=== PATIENT | female | born 1990 | race Caucasian/White ===

== ENCOUNTER 2019-05-30 11:29 | Emergency (ER) | payer MEDICAID ==
[2019-05-30 11:35] VITALS: BP 131/77
[2019-05-30] MEDS ORDERED: CEPHALEXIN 500 MG CAPSULE PO ONE (12:07)
--- NOTE | 2019-05-30 12:11 | ER Document Report ---
ED Skin Rash/Insect Bite/Abscs - General Chief Complaint: Skin Problem Stated Complaint: SKIN PROBLEM Time Seen by Provider: 05/30/19 12:01 Mode of Arrival: Ambulatory Information source: Patient Notes: 28-year-old female presents to ED for bowel behind the left arm. She states she has a history of the same. She has a spot that is been present for 2 weeks but is getting painful when palpated. She states it does not hurt when it is not touched. She has had multiple boils. TRAVEL OUTSIDE OF THE [place] IN LAST 30 DAYS: No - HPI Patient complains to provider of: Tender/swollen area Onset: Other - 2 weeks Onset/Duration: Gradual Quality of pain: Sharp - Palpated Severity: None Pain Level: Denies Skin Character: Abscess Quality of rash: Painful Identify cause: No Exacerbated by: Other - Palpation Relieved by: Denies Similar symptoms previously: Yes Recently seen / treated by doctor: No - Related Data Allergies/Adverse Reactions: loratadine [From Claritin] Allergy (Mild, Verified 05/30/19 11:31) Nausea propoxyphene napsylate [From Darvocet-N 100] Allergy (Mild, Verified 05/30/19 11:31) Nausea aspirin [Aspirin] Allergy (Verified 05/30/19 11:31) desloratadine [From Clarinex] Allergy (Verified 05/30/19 11:31) Iodinated Contrast- Oral and IV Dye [IV Dye, Iodine Containing] Allergy (Verified 05/30/19 11:31) Past Medical History - General Information source: Patient - Social History Smoking Status: Current Every Day Smoker Cigarette use (# per day): Yes Smoking Education Provided: Yes - 4 minutes Lives with: Family Family History: CAD, CVA, DM, Hyperlipidemia, Hypertension - Past Medical History Cardiac Medical History: Reports: None Pulmonary Medical History: Reports: Hx Asthma EENT Medical History: Reports: None Neurological Medical History: Reports: Hx Migraine Endocrine Medical History: Reports: None Renal/ Medical History: Reports: None Malignancy Medical History: Reports: None GI Medical History: Reports: Hx Gastroesophageal Reflux Disease Musculoskeletal Medical History: Reports Hx Arthritis Skin Medical History: Reports Hx Cellulitis, Reports Hx Psoriasis Psychiatric Medical History: Reports: Hx Anxiety, Hx Attention Deficit Hyperactivity Disorder, Hx Post Traumatic Stress Disorder Traumatic Medical History: Reports: None Infectious Medical History: Reports: None Past Surgical History: Reports: Hx Section - x3, Hx Cholecystectomy, Hx Tubal Ligation - Immunizations Immunizations up to date: Yes Hx Diphtheria, Pertussis, Tetanus Vaccination: Yes - unk Review of Systems - Review of Systems Constitutional: No symptoms reported EENT: No symptoms reported Cardiovascular: No symptoms reported Respiratory: No symptoms reported Gastrointestinal: No symptoms reported Genitourinary: No symptoms reported Female Genitourinary: No symptoms reported Musculoskeletal: No symptoms reported Skin: Other - small abscess left post axilla Hematologic/Lymphatic: No symptoms reported Neurological/Psychological: No symptoms reported -: Yes All other systems reviewed and negative Physical Exam - Vital signs Vitals: Temp Pulse Resp BP Pulse Ox 98.1 F 70 16 131/77 H 99 05/30/19 11:35 05/30/19 11:35 05/30/19 11:35 05/30/19 11:35 05/30/19 11:35 Interpretation: Normal - General General appearance: Appears well, Alert - HEENT Head: Normocephalic, Atraumatic Eyes: Normal Pupils: PERRL - Respiratory Respiratory status: No respiratory distress Chest status: Nontender Breath sounds: Normal Chest palpation: Normal - Cardiovascular Rhythm: Regular Heart sounds: Normal auscultation Murmur: No - Abdominal Inspection: Normal Distension: No distension Bowel sounds: Normal Tenderness: Nontender Organomegaly: No organomegaly - Back Back: Normal, Nontender - Extremities General upper extremity: Normal inspection, Nontender, Normal color, Normal ROM, Normal temperature General lower extremity: Normal inspection, Nontender, Normal color, Normal ROM, Normal temperature, Normal weight bearing. No: Tucker's sign - Neurological Neuro grossly intact: Yes Cognition: Normal Orientation: AAOx4 [place] Coma Scale Eye Opening: Spontaneous Luis Coma Scale Verbal: Oriented [place] Coma Scale Motor: Obeys Commands Luis Coma Scale Total: 15 Speech: Normal Motor strength normal: LUE, RUE, LLE, RLE Sensory: Normal - Psychological Associated symptoms: Normal affect, Normal mood - Skin Skin Temperature: Warm Skin Moisture: Dry Skin Color: Normal Skin irregularity: Abscess Location of irregularity: Other - Just behind the left axilla Irregularity with: Swelling, Tenderness, Warmth Course - Vital Signs Vital signs: Temp Pulse Resp BP Pulse Ox 98.1 F 70 16 131/77 H 99 05/30/19 11:35 05/30/19 11:35 05/30/19 11:35 05/30/19 11:35 05/30/19 11:35 Procedures - Incision and Drainage Left Arm Time completed: 12:18 Type: Simple Anesthetic type: Other - 0 mL's of anesthetic: 0 Blade size: Other - 18 gauge I&D procedure: Betadine prep applied, Sterile dressing applied Incision Method: Incision made with needle Amount/type of drainage: moderate amount ppurulent Discharge - Discharge Clinical Impression: Abscess of left axilla Condition: Stable Disposition: HOME, SELF-CARE Instructions: Family Physicians / Practices Additional Instructions: ABSCESS: You have an abscess (boil). This a pus-forming infection, usually due to staph. Some boils may be left to drain on their own, but most require lancing. From the time the tender lump first appears, it may be three or four days before the abscess is ready to laura. Local heat and rest help at this stage of treatment. An antibiotic may prevent spread of the infection. Once the abscess is opened, packing may be placed into it. This is done so pus is not sealed inside by premature closure of the cavity. The packing will be removed at your follow-up visit or you may be advised to remove it yourself at home. Sometimes this packing must be replaced a few times during healing. The wound will heal with surprisingly little scar. Depending on the size and location of an abscess, healing can take one to four weeks. You may shower and wash the area around the incision site two or three times a day. Antibiotics may be prescribed, but are usually not necessary after an abscess has been drained. If you develop fever, chills, worsening pain, or increasing swelling in the area, call the doctor or return immediately. Soap Cleansing Gently wash the wound daily using a mild soap (like Ivory, Phisoderm, Neutrogena). Use warm water, rubbing gently until all debris, ooze, and crusting have been washed from the wound. Allow to dry briefly (about 10 minutes) after cleaning. Repeat this cleansing at least three times a day for the first two days and then once or twice a day. POST INCISION AND DRAINAGE: You have had an incision made to allow drainage of an abscess. The incision must remain open so that pus and debris can drain from the wound. If the abscess cavity is large, packing is placed. This keeps the tissues from collapsing and trapping pus inside, while the body shrinks the cavity. The packing may need to be replaced every day or two. The physician will instruct you on the packing. Keep a bulky dressing over the area. Replace it if it becomes saturated with blood or pus. Do not disturb the packing (if present). You may shower and cleanse the area with gentle soap and warm water two or three times a day. Local warmth may be soothing, and may promote faster healing. Return if you develop high fever or chills, or if you note spreading redness, increasing swelling, or increasing tenderness. CEPHALEXIN: The antibiotic you've been prescribed is a member of the cephalosporin class. This type of antibiotic covers a wide variety of infections, including those of the skin, lungs, and urinary tract. It's useful for staph infections. This antibiotic is slightly similar to the penicillin family. In rare cases, a person who is allergic to penicillin will also be allergic to this medication. If you have had a severe allergic reaction to penicillin, and have not taken this antibiotic since that time, notify your doctor. Antibiotics which cover many germs ("broad spectrum" antibiotics) are more likely to cause diarrhea or "yeast" infections. Women prone to vaginal yeast problems may suffer an attack after taking this antibiotic. In infants, oral thrush (white spots "stuck" on the cheek) or yeast diaper rash may result. See your doctor if these problems occur. Call at once if you develop itching, hives, shortness of breath, or lightheadedness. Epsom Salt Soaks Soak the wound area in a container of warm epsom salt water. If you can't get the wound area into a bucket or farrell, use a folded towel soaked in the epsom salt solution and apply to the area. Use clean hot tap water (about the temperature of a very warm bath), mixing in about one (1) teaspoon for every pint of water. Two gallon --> 16 teaspoons Epsom Salts One gallon --> 8 teaspoons Epsom Salts Two quarts --> 4 teaspoons Epsom Salts One quart --> 2 teaspoons Epsom Salts Soak the wound for about 20 minutes while gently moving it around in the water. Repeat this four (4) times a day. FOLLOW-UP CARE: Most simple abscesses will not require a follow up visit. If you had packing placed in the abscess, remove it as instructed by the physician. If you have been referred to a physician for follow-up care, call the physicians office for an appointment as you were instructed or within the next two days. If you experience worsening or a significant change in your symptoms, return to the Emergency Department at any time for re-evaluation. Prescriptions: Cephalexin Monohydrate [Keflex 500 mg Capsule] 500 mg PO Q6H 5 Days capsule Forms: Elevated Blood Pressure, Smoking Cessation Education
== END 2019-05-30 12:21 | disposition home or self-care (01) ==
LOC: ER 11:29
DX: L02.412 Cutaneous abscess of left axilla (principal); J45.909 Unspecified asthma, uncomplicated; F17.210 Nicotine dependence, cigarettes, uncomplicated; Z71.6 Tobacco abuse counseling; Z91.041 Radiographic dye allergy status; Z88.8 Allergy status to other drugs, medicaments and biological substances; Z88.5 Allergy status to narcotic agent
CPT/HCPCS: 99283; 99406

== ENCOUNTER 2019-07-14 18:10 | Observation (INO) | payer MEDICAID ==
[2019-07-14] MEDS ORDERED: METOCLOPRAMIDE HCL INJ/PF 10 MG/2 ML SDV IV ONE (18:31)
[2019-07-14] MEDS ORDERED: NORMAL SALINE 1000 ML 1,000 ML IV ONE (18:31)
[2019-07-14] MEDS ORDERED: DIPHENHYDRAMINE HCL 50 MG/ML VIAL IV ONE (18:31)
--- NOTE | 2019-07-14 18:44 | ER Document Report ---
ED Medical Screen (RME) - General Chief Complaint: Eye Pain Stated Complaint: RIGHT EYE VISION PROBLEMS Time Seen by Provider: 07/14/19 18:24 Notes: Patient is a 29-year-old female with a history of COPD, asthma, scoliosis, chronic migraines who presents to the emergency department with a chief complaint of right eye vision loss. Patient states that she has been battling a migraine headache throughout the day and around 3 PM she lost vision in the right eye while driving through a fast food drive-through. Patient states it is all black in her right visual field. She states that occasionally she will see white streaks of brightness. Patient reports that her migraine headache is different from her normal. Patient reports that her headache discomfort is primarily to the right hoahaoism, right side of the neck and the right eye socket. Patient states that the right eye feels like there is a pressure and burning. Patient denies injury or fall. Patient reports nausea. Patient reports photosensitivity to the left eye. Patient denies contact or prescription eyeglasses use. Patient states she has never lost vision with her migraine headaches. TRAVEL OUTSIDE OF THE [place] IN LAST 30 DAYS: No - Related Data Allergies/Adverse Reactions: loratadine [From Claritin] Allergy (Mild, Verified 07/14/19 18:13) Nausea propoxyphene napsylate [From Darvocet-N 100] Allergy (Mild, Verified 07/14/19 18:13) Nausea aspirin [Aspirin] Allergy (Verified 07/14/19 18:13) desloratadine [From Clarinex] Allergy (Verified 07/14/19 18:13) Iodinated Contrast Media [IV Dye, Iodine Containing] Allergy (Verified 07/14/19 18:13) Past Medical History - Social History Frequency of alcohol use: None Drug Abuse: None - Past Medical History Cardiac Medical History: Denies: Hx Coronary Artery Disease, Hx Heart Attack, Hx Hypertension Pulmonary Medical History: Reports: Hx Asthma, Hx COPD Denies: Hx Bronchitis, Hx Pneumonia Neurological Medical History: Reports: Hx Migraine. Denies: Hx Cerebrovascular Accident, Hx Seizures Renal/ Medical History: Denies: Hx Peritoneal Dialysis GI Medical History: Reports: Hx Gastroesophageal Reflux Disease Musculoskeltal Medical History: Reports Hx Arthritis Skin Medical History: Reports Hx Cellulitis, Reports Hx Psoriasis Psychiatric Medical History: Reports: Hx Anxiety, Hx Attention Deficit Hyperactivity Disorder, Hx Post Traumatic Stress Disorder Past Surgical History: Reports: Hx Section - x3, Hx Cholecystectomy, Hx Tubal Ligation - Immunizations Immunizations up to date: Yes Hx Diphtheria, Pertussis, Tetanus Vaccination: Yes - unk Physical Exam - Vital signs Vitals: Temp Pulse Resp BP Pulse Ox 98.0 F 77 18 131/77 H 98 07/14/19 18:15 07/14/19 18:15 07/14/19 18:15 07/14/19 18:15 07/14/19 18:15 Interpretation: Normal - HEENT Head: Normocephalic Eyes: Normal Conjunctiva: Normal Cornea: Normal Extraocular movements intact: Yes Eyelashes: Normal Pupils: PERRL Visual de souza normal: No - Pt. unable to see out of right eye. Neck: Normal Course - Re-evaluation Re-evalutation: 07/14/19 18:43 I have greeted and performed a rapid initial assessment of this patient. A comprehensive ED assessment and evaluation of the patient, analysis of test results and completion of the medical decision making process will be conducted by additional ED providers. - Vital Signs Vital signs: Temp Pulse Resp BP Pulse Ox 98.0 F 77 18 131/77 H 98 07/14/19 18:15 07/14/19 18:15 07/14/19 18:15 07/14/19 18:15 07/14/19 18:15
--- NOTE | 2019-07-14 19:35 | RADIOLOGY REPORT (SQ) ---
EXAM DESCRIPTION: CT HEAD WITHOUT COMPLETED DATE/TIME: 07/14/2019 7:14 pm REASON FOR STUDY: lost vision right eye, headache COMPARISON: 04/14/2016 TECHNIQUE: Axial images acquired through the brain without intravenous contrast. Images reviewed wi th bone, brain and subdural windows. Additional sagittal and coronal reconstructions were generated. Images stored on PACS. All CT scanners at this facility use dose modulation, iterative reconstruction, and/or weight based d osing when appropriate to reduce radiation dose to as low as reasonably achievable (ALARA). [facility]: Dose Right [facility]: CareDose [facility]: Dose Right [facility]: Teradose 4D [facility]: Smart SellABand RADIATION DOSE: CT Rad equipment meets quality standard of care and radiation dose reduction techniq ues were employed. CTDIvol: 53.2 mGy. DLP: 1070 mGy-cm. mGy. LIMITATIONS: None. FINDINGS: VENTRICLES: Normal size and contour. CEREBRUM: No masses. No hemorrhage. No midline shift. No evidence for acute infarction. Normal gra y/white matter differentiation. No areas of low density in the white matter. CEREBELLUM: No masses. No hemorrhage. No alteration of density. No evidence for acute infarction. EXTRAAXIAL SPACES: No fluid collections. No masses. ORBITS AND GLOBE: No intra- or extraconal masses. Normal contour of globe without masses. CALVARIUM: No fracture. PARANASAL SINUSES: No fluid or mucosal thickening. SOFT TISSUES: No mass or hematoma. OTHER: No other significant finding. IMPRESSION: NORMAL BRAIN CT WITHOUT CONTRAST. EVIDENCE OF ACUTE STROKE: NO. COMMENT: Quality ID # [id number]: Final reports with documentation of one or more dose reduction techniques (e.g., Automated exposure control, adjustment of the mA and/or kV according to patient size, use of iterative reconstruction technique) TECHNICAL DOCUMENTATION: JOB ID: [id number] [employer]- All Rights Reserved Reading location - IP/workstation name: [email or web address]
[2019-07-14] MEDS ORDERED: TETRACAINE HCL 0.5% OPH SOLN 4 ML ONE (19:55)
[2019-07-14 20:53] LABS: INTERNATIONAL RATION (INR) 0.97; PROTHROMBIN TIME 12.9 SEC (11.4-15.4)
[2019-07-14 20:56] LABS: ABSOLUTE BASOPHILS # (AUTO) 0.1 10^3/uL (0.0-0.2); ABSOLUTE EOSINOPHILS # (AUTO) 0.2 10^3/uL (0.0-0.6); ABSOLUTE LYMPHOCYTES (AUTO) 4.2 10^3/uL (0.5-4.7); ABSOLUTE MONOCYTES (AUTO) 0.6 10^3/uL (0.1-1.4); ABSOLUTE NEUT (AUTO) 7.1 10^3/uL (1.7-8.2); BASOPHILS % (AUTO) 0.5 % (0-2); EOSINOPHILS % (AUTO) 1.5 % (0-6); HEMATOCRIT 44.3 % (36.0-47.0); HEMOGLOBIN 14.7 g/dL (12.0-15.5); LYMPHOCYTES % (AUTO) 34.5 % (13-45); MEAN CORPUSCULAR HGB CONC 33.2 g/dL (32.0-36.0); MEAN CORPUSCULAR VOLUME 82 fl (80-97); MONOCYTES % (AUTO) 4.7 % (3-13); PLATELET COUNT 334 10^3/uL (150-450); RED BLOOD COUNT 5.43 10^6/uL (3.72-5.28); RED CELL DISTRIBUTION WIDTH 15.1 % (11.5-14.0); SEGMENTED NEUTROPHILS % (AUTO) 58.8 % (42-78); TOTAL CELLS COUNTED % (AUTO) 100 %; WHITE BLOOD COUNT 12.2 10^3/uL (4.0-10.5)
[2019-07-14 21:10] LABS: ALBUMIN 4.3 g/dL (3.5-5.0); ALKALINE PHOSPHATASE 107 U/L (38-126); ANION GAP 9 (5-19); ASPARTATE AMINO TRANSFERASE 21 U/L (14-36); BILIRUBIN,DIRECT 0.2 mg/dL (0.0-0.4); BILIRUBIN,TOTAL 0.3 mg/dL (0.2-1.3); BLOOD UREA NITROGEN 7 mg/dL (7-20); CALCIUM 9.6 mg/dL (8.4-10.2); CARBON DIOXIDE 26 mmol/L (22-30); CHLORIDE 103 mmol/L (98-107); GLUCOSE 84 mg/dL (75-110); POTASSIUM 4.5 mmol/L (3.6-5.0); TOTAL PROTEIN 7.7 g/dL (6.3-8.2)
--- NOTE | 2019-07-14 21:10 | ER Document Report ---
ED General - General Chief Complaint: Eye Pain Stated Complaint: RIGHT EYE VISION PROBLEMS Time Seen by Provider: 07/14/19 18:24 TRAVEL OUTSIDE OF THE [place] IN LAST 30 DAYS: No - HPI Notes: 29-year-old female presents with painful monocular vision loss. Patient states around 330 or 4 PM she was in a drive-through when she had sudden loss of vision in the right eye. Describes rapid onset of a throbbing pain. She states she lost the middle and extending to the lateral three quarters of her vision and then approximately 5 minutes later everything went black. She denies any recent trauma. Has remote history of head injury she states 10 years ago. She denies any estrogen replacement, no history of VTE or thrombosis. No history of atrial fibrillation. Denies any trauma to the eye. Headache is now extended in her right occipital region toward her neck. There is no personal or family history of aneurysm. Moderate severe intensity, nonradiating except as described. Sudden onset. No other modifying factors, no other associated symptoms, no other provocative or palliative factors. - Related Data Allergies/Adverse Reactions: loratadine [From Claritin] Allergy (Mild, Verified 07/14/19 18:13) Nausea propoxyphene napsylate [From Darvocet-N 100] Allergy (Mild, Verified 07/14/19 18:13) Nausea aspirin [Aspirin] Allergy (Verified 07/14/19 18:13) desloratadine [From Clarinex] Allergy (Verified 07/14/19 18:13) Iodinated Contrast Media [IV Dye, Iodine Containing] Allergy (Verified 07/14/19 18:13) Past Medical History - Social History Smoking Status: Current Every Day Smoker Frequency of alcohol use: None Drug Abuse: None Family History: CAD, CVA, DM, Hyperlipidemia, Hypertension Patient has suicidal ideation: No Patient has homicidal ideation: No - Past Medical History Cardiac Medical History: Denies: Hx Coronary Artery Disease, Hx Heart Attack, Hx Hypertension Pulmonary Medical History: Reports: Hx Asthma, Hx COPD Denies: Hx Bronchitis, Hx Pneumonia Neurological Medical History: Reports: Hx Migraine. Denies: Hx Cerebrovascular Accident, Hx Seizures Renal/ Medical History: Denies: Hx Peritoneal Dialysis GI Medical History: Reports: Hx Gastroesophageal Reflux Disease Musculoskeletal Medical History: Reports Hx Arthritis Skin Medical History: Reports Hx Cellulitis, Reports Hx Psoriasis Psychiatric Medical History: Reports: Hx Anxiety, Hx Attention Deficit Hyperactivity Disorder, Hx Post Traumatic Stress Disorder Past Surgical History: Reports: Hx Section - x3, Hx Cholecystectomy, Hx Tubal Ligation - Immunizations Immunizations up to date: Yes Hx Diphtheria, Pertussis, Tetanus Vaccination: Yes - unk Review of Systems - Review of Systems Notes: Review of systems as in the history of present illness, otherwise negative x 10 systems. Physical Exam - Vital signs Vitals: Temp Pulse Resp BP Pulse Ox 98.0 F 77 18 131/77 H 98 07/14/19 18:15 07/14/19 18:15 07/14/19 18:15 07/14/19 18:15 07/14/19 18:15 - Notes Notes: General: Well developed . HEENT: Normocephalic, atraumatic. Pupils equal round reactive to light. No JVD. Chest: No trauma. Respiratory: Good air exchange, normal excursion. Cardiac: Regular rhythm. No murmurs or gallops. Abdomen: Soft, benign. Nondistended. Nontender. Back: No asymmetry or gross abnormality. Motor: Grossly normal power and tone. Neurologic: Alert, nonfocal. Cranial nerves II-12 are intact. Sensation intact. Vascular: Well perfused. Normal peripheral pulses. Skin: No petechiae or purpura. Right eye exam: Funduscopic exam was attempted but unable to visualize the fundi due to pupillary constriction. There is an apparent pupillary defect noted in the right eye. Tonometry shows an IOP of 18. There is no bulbar conjunctival injury noted. Extraocular movements are intact. Course - Re-evaluation Re-evalutation: 07/14/19 21:09 Patient was evaluated by the [facility] provider prior to my evaluation. Studies / interventions have been ordered by this provider and may still be pending. By physician in triage who ordered CT imaging of the brain, this is unremarkable. My initial evaluation, patient has acute painful monocular vision loss. She is complete and total loss of vision in the right eye, unable to perceive colors shapes or light or dark. This is concerning for an ophthalmic artery occlusion, CRV over CRE O are markedly less likely. Case discussed initially with the cable ferry operator economic consultant via telephone. He indicated that she was out of the window for any therapy if this were a [employer] O. Concern remains for a vascular event. He is recommended MRI with and without of the orbits, will proceed with head and neck as well with MRA., Reevaluate 07/15/19 01:26 Patient underwent extensive MR imaging, MRI and MRA are all read as unremarkable. Vision loss is complete and persistent. 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 Ophthalmology recommends inpatient admission for continued stroke work- up. He recommends initiation of anticoagulation, heparin drip is ordered and started. Labs reviewed, CBC, coags chemistries unremarkable. Patient received additional analgesics. Will be admitted to hospital service for continuation of stroke work-up including echocardiogram. - Vital Signs Vital signs: Temp Pulse Resp BP Pulse Ox 98.0 F 77 18 131/77 H 98 07/14/19 18:15 07/14/19 18:15 07/14/19 18:15 07/14/19 18:15 07/14/19 18:15 - Laboratory Result Diagrams: 07/14/19 18:50 07/14/19 18:50 Laboratory results interpreted by me: 07/14/19 18:50 WBC 12.2 H RBC 5.43 H RDW 15.1 H Discharge - Discharge Clinical Impression: Monocular vision loss Condition: Serious Disposition: ADMITTED OBSERVATION Admitting Provider: Marian (Hospitalist) Unit Admitted: [facility]
--- NOTE | 2019-07-14 22:56 | RADIOLOGY REPORT (SQ) ---
MR BRAIN WITHOUT THEN WITH IV CONTRAST MR ANGIOGRAPHY OF THE HEAD AND NECK HISTORY: Right monocular vision loss. Headache. COMPARISON: CT scan from earlier the same day. TECHNIQUE: 1) Multisequence, multiplanar MR imaging of the brain was performed without and with the administration of intravenous gadolinium. 2) MR angiography of the head and neck was performed without the administration of intravenous gadolinium. FINDINGS: MRI: The ventricles and sulci are normal in size. No abnormal parenchymal or dural enhancement. There is no acute infarction, intracranial hemorrhage, extra-axial fluid collection, or mass. The brainstem, posterior fossa, and cervicomedullary junction are preserved. The intravascular flow voids are preserved. The orbits are unremarkable. No abnormality of the skull base or calvarium is seen. MRA: The anterior and posterior cerebral circulations are patent. No hemodynamically significant stenosis, aneurysmal dilatation or dissection is seen. No focal aneurysm is identified. No hemodynamically significant stenosis of the common carotid, carotid bifurcation, or internal carotid arteries is seen. The extracranial portions of the vertebral basilar system are preserved without stenosis. No aneurysmal dilatation or dissection is seen. IMPRESSION: No MR findings to explain patient's symptoms.
[2019-07-14] MEDS ORDERED: MORPHINE SULFATE 10 MG/ML INJ IV ONE (23:23)
--- NOTE | 2019-07-15 02:20 | PDOC H&P ---
History of Present Illness Admission Date/PCP: 07/14/19 00:37 History of Present Illness: OPHELIA NEWMAN is a 29 year old female who is a smoker, nondiabetic, and no history of chronic kidney disease or any heart problems, with a family history of stroke in her mother, who presents with painful right monocular visual loss. Around 3:30 in the afternoon she was going through a drive-through when she had loss of half of her visual field and then the other half. She says she had been having a headache all day long. By the time I saw her it was about 8 hours after the loss of her vision and she had not had recovery of it. She was seen by the railroad police officer in the emergency room who diagnosed her with a central retinal artery occlusion and recommended work-up for an embolic stroke. Past Medical History Cardiac Medical History: Denies: Coronary Artery Disease, Myocardial Infarction, Hypertension Pulmonary Medical History: Reports: Asthma, Chronic Obstructive Pulmonary Disease (COPD) Denies: Bronchitis, Pneumonia Neurological Medical History: Reports: Migraine Denies: Seizures GI Medical History: Reports: Gastroesophageal Reflux Disease Musculoskeltal Medical History: Reports: Arthritis Skin Medical History: Reports: Psoriasis Psychiatric Medical History: Reports: Attention Deficit Hyperactivity Disorder, Post Traumatic Stress Disorder Hematology: Denies: Anemia Past Surgical History Past Surgical History: Reports: Section - x3, Cholecystectomy, Tubal Ligation Social History Smoking Status: Current Every Day Smoker Family History Family History: CAD, CVA, DM, Hyperlipidemia, Hypertension Parental Family History Reviewed: Yes - Her mother had a stroke Children Family History Reviewed: Yes Sibling(s) Family History Reviewed.: NA Medication/Allergy Home Medications: Amitriptyline HCl [Elavil 10 Mg Tablet] 10 mg PO 01/22/15 Amitriptyline HCl [Elavil 25 mg Tablet] 25 mg PO 01/22/15 Amitriptyline HCl [Elavil 50 Mg Tablet] 50 mg PO QHS 01/22/15 Butalb/Acetaminophen/Caffeine [Fioricet 50-300-40 mg Capsule] 1 cap PO Q4 PRN 01/22/15 Cholecalciferol (Vitamin D3) [Vitamin D-3] 2,000 unit PO DAILY 01/22/15 Diphenhydramine HCl [Benadryl 25 mg Capsule] 1 cap PO TID 01/22/15 Omeprazole [Prilosec] 40 mg PO BID 01/22/15 Promethazine HCl 25 mg PO Q4 01/22/15 Rizatriptan Benzoate [Rizatriptan] 10 mg PO PRN 01/22/15 Topiramate [Topamax] 100 mg PO TID 01/22/15 Diazepam [Valium 5 mg Tablet] 5 mg PO TID #15 tablet 07/04/15 Acyclovir 800 mg PO 5XD #50 tablet 10/07/15 Oxycodone HCl/Acetaminophen [Percocet 10-325 Mg Tablet] 1 each PO Q4HP PRN #20 tablet 10/07/15 Cephalexin Monohydrate [Keflex 500 mg Capsule] 1,000 mg PO BID 10 Days capsule 11/07/15 Sulfamethoxazole/Trimethoprim [Bactrim Ds Tablet] 1 each PO BID 10 Days tablet 11/07/15 Ketoconazole 30 gm TP ASDIR PRN #2 cream.gm. 11/09/15 Nystatin 30 gm TP TID #1 oint...g. 11/11/15 Prochlorperazine Maleate [Compazine 10 mg Tablet] 10 mg PO Q8 #20 tablet 11/11/15 Azithromycin [Zithromax 250 mg Tablet] 250 mg PO ASDIR PRN #6 tablet 06/11/16 Cyclobenzaprine HCl [Flexeril 10 mg Tablet] 10 mg PO TIDP PRN #15 tab 06/11/16 Fluticasone Propionate [Flonase Nasal Surprise 50 Mcg/Surprise 16 gm] 2 sprays NASL Q12 #1 inhaler 06/11/16 Hydrocodone Bit/Homatropine [Hycodan Syrup 5-1.5 mg/5 ml Ud Cup] 5 ml PO Q4HP PRN #120 ml 06/11/16 Prednisone [Deltasone 20 mg Tablet] 3 tab PO DAILY 5 Days tablet 06/11/16 Cephalexin Monohydrate [Keflex 500 mg Capsule] 500 mg PO Q6H 5 Days capsule 05/30/19 Allergies/Adverse Reactions: loratadine [From Claritin] Allergy (Mild, Verified 07/14/19 18:13) Nausea propoxyphene napsylate [From Darvocet-N 100] Allergy (Mild, Verified 07/14/19 18:13) Nausea aspirin [Aspirin] Allergy (Verified 07/14/19 18:13) desloratadine [From Clarinex] Allergy (Verified 07/14/19 18:13) Iodinated Contrast Media [IV Dye, Iodine Containing] Allergy (Verified 07/14/19 18:13) Review of Systems All systems: reviewed and no additional remarkable complaints except as stated - All systems were reviewed and were negative except as noted above Physical Exam Vital Signs: Temp Pulse Resp BP Pulse Ox 98.0 F 77 19 127/59 H 98 07/14/19 18:15 07/14/19 18:15 07/15/19 01:01 07/15/19 01:01 07/15/19 01:01 Intake & Output 07/13/19 07/14/19 07/15/19 06:59 06:59 06:59 Intake Total 1000 Balance 1000 Weight 116.9 kg General appearance: PRESENT: no acute distress, cooperative, disheveled, morbidly obese Head exam: PRESENT: atraumatic, normocephalic Eye exam: PRESENT: EOMI, other - Her eyes had been dilated by the railroad police officer and so they were not responsive because of the drug effect. She could not see anything out of her right eye.. ABSENT: conjunctival injection, nystagmus, scleral icterus Ear exam: PRESENT: normal external ear exam Mouth exam: PRESENT: moist, neck supple Throat exam: ABSENT: post pharyngeal erythema Neck exam: PRESENT: full ROM. ABSENT: carotid bruit, JVD, lymphadenopathy, meningismus, tenderness, thyromegaly Respiratory exam: PRESENT: clear to auscultation reba, symmetrical, unlabored. ABSENT: accessory muscle use, chest wall tenderness, crackles, prolonged expiratory phas, rhonchi, tachypnea, wheezes Cardiovascular exam: PRESENT: RRR, +S1, +S2. ABSENT: diastolic murmur, systolic murmur Pulses: ABSENT: normal carotid pulses Vascular exam: PRESENT: normal capillary refill GI/Abdominal exam: PRESENT: normal bowel sounds, soft. ABSENT: distended, guarding, rebound, tenderness Extremities exam: ABSENT: clubbing, pedal edema Musculoskeletal exam: PRESENT: normal inspection. ABSENT: deformity Neurological exam: PRESENT: alert, awake, oriented to person, oriented to place, oriented to situation, CN II-XII grossly intact - With limitations as noted above in her oculomotor nerve, motor sensory deficit - No vision in her right eye Psychiatric exam: PRESENT: anxious, normal mood Skin exam: PRESENT: dry, warm Results Laboratory Results: 07/14/19 18:50 07/14/19 18:50 07/14/19 07/14/19 18:50 18:50 WBC 12.2 H RBC 5.43 H Hgb 14.7 Hct 44.3 MCV 82 MCH 27.0 MCHC 33.2 RDW 15.1 H Plt Count 334 Seg Neutrophils % 58.8 Lymphocytes % 34.5 Monocytes % 4.7 Eosinophils % 1.5 Basophils % 0.5 Absolute Neutrophils 7.1 Absolute Lymphocytes 4.2 Absolute Monocytes 0.6 Absolute Eosinophils 0.2 Absolute Basophils 0.1 Sodium 138.3 Potassium 4.5 Chloride 103 Carbon Dioxide 26 Anion Gap 9 BUN 7 Creatinine 0.63 Est GFR ( Amer) > 60 Est GFR (Non-Af Amer) > 60 Glucose 84 Calcium 9.6 Total Bilirubin 0.3 AST 21 Alkaline Phosphatase 107 Total Protein 7.7 Albumin 4.3 Impressions: Head CT 07/14/19 18:32 IMPRESSION: NORMAL BRAIN CT WITHOUT CONTRAST. EVIDENCE OF ACUTE STROKE: NO. Brain MRI with MRA 07/14/19 20:27 IMPRESSION: No MR findings to explain patient's symptoms. Head MRI 07/14/19 20:27 IMPRESSION: No MR findings to explain patient's symptoms. Neck MRA 07/14/19 20:27 IMPRESSION: No MR findings to explain patient's symptoms. Assessment and Plan - Diagnosis (1) Monocular vision loss Is this a current diagnosis for this admission?: Yes Plan: Seen by ophthalmology in the ER, diagnosis central retinal artery occlusion. Recommendation was to work her up for an embolic stroke. She is had all the work-up done thus far except for an echocardiogram, which we will obtained tomorrow. She says she cannot take aspirin because it "gives me symptoms of a heart attack." Ophthalmology did recommend starting anticoagulation that has been done. We will start her on a statin. I do not think there is any need for her to see PT, OT, or speech therapy. Did recommend that she quit smoking. (2) Morbid obesity Is this a current diagnosis for this admission?: Yes Plan: Recommended lifestyle modification - Time Time Spent with patient: 35 or more minutes
[2019-07-15] MEDS ORDERED: KETOROLAC TROMETHAMINE INJ/PF 30 MG/1 ML SDV IV ONE (04:15)
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
[2019-07-15] MEDS: BUTALB/ACETAMINOPHEN/CAFFEINE 1 TAB EACH PO PRN ×3 (09:56→21:52)
--- NOTE | 2019-07-15 11:20 | EKG REPORT ---
SEVERITY:- NORMAL ECG - SINUS RHYTHM : Confirmed by: Dionicio Iqbal 15-Jul-2019 11:20:23
[2019-07-15] MEDS ORDERED: ALPRAZOLAM 0.5 MG TABLET PO ONE (18:00)
--- NOTE | 2019-07-15 18:50 | XCELERA REPORT ---
[address] [address] Transthoracic Echocardiogram Report Name: OPHELIA NEWMAN Age: 29 yrs Gender: Female : 1990 Patient Status: Inpatient Patient Location: [address] [place] [address] Study Date: 07/15/2019 10:20 AM Height: 64 in Weight: 257 lb BSA: 2.2 m2 Procedure: A two-dimensional transthoracic echocardiogram with color flow and Doppler was performed. The study was technically difficult with many images being suboptimal in quality. The study was technically limited with all images being suboptimal in quality. Reason For Study: possible embolic cva History: CVA. Ordering Physician: ERIN GALAES Performed By: Joyce Wallace Interpretation Summary There is no obvious cardiac source of embolus noted on this transthoracic echocardiogram. Follow-up with a ED is suggested if cardiac source is still suspected. The left ventricle is normal in size. There is normal left ventricular wall thickness. LV EF is 60% Left ventricular systolic function is normal. Doppler measurements suggest normal left ventricular diastolic function The left ventricular wall motion is normal. There is no thrombus. Cannot assess ASD,VSD , or PFO. The right ventricle is not well visualized secondary to technical limitations Right atrium not well visualized secondary to technical limitations The left atrial size is normal. There is mild mitral annular calcification. There is no evidence of mitral valve prolapse. There is no vegetation seen on the mitral valve. There is no mitral valve stenosis. There is no mitral regurgitation noted. There is no aortic valvular vegetation. There is aortic sclerosis without aortic stenosis. No aortic regurgitation is present. There is no tricuspid stenosis. There is a trace amount of tricuspid regurgitation Right ventricular systolic pressure is normal. RVSP is 22 to 27 mm of Hg , with RA mean of 5 to 10. There is no pulmonic valvular stenosis. There is no pulmonic valvular regurgitation. The aortic root is normal size. The inferior vena cava appeared normal and decreased > 50% with respiration (RAP 5-10 mmHg) There is no pericardial effusion. There is no obvious cardiac source of embolus noted on this transthoracic echocardiogram. Follow-up with a ED is suggested if cardiac source is still suspected MMode/2D Measurements & Calculations RVDd: 3.3 cm LVIDd: 4.7 cm FS: 32.4 % Ao root diam: 2.9 cm IVSd: 0.82 cm LVIDs: 3.2 cm EDV(Teich): 101.9 ml Ao root area: 6.7 cm2 LVPWd: 0.95 cm ESV(Teich): 40.1 ml EF(Teich): 60.7 % Doppler Measurements & Calculations MV E max yamilet: MV dec slope: Ao V2 max: LV V1 max P.9 cm/sec 579.0 cm/sec2 117.9 cm/sec 2.4 mmHg MV A max yamilet: MV dec time: 0.17 secAo max PG: LV V1 max: 69.1 cm/sec 5.6 mmHg 77.3 cm/sec MV E/A: 1.4 PA V2 max: TR max yamilet: 93.7 cm/sec 207.3 cm/sec PA max P.5 mmHg TR max P.2 mmHg Left Ventricle The left ventricle is normal in size. There is normal left ventricular wall thickness. LV EF is 60%. Left ventricular systolic function is normal. Doppler measurements suggest normal left ventricular diastolic function. The left ventricular wall motion is normal. There is no thrombus. Cannot assess ASD,VSD , or PFO. Right Ventricle The right ventricle is not well visualized secondary to technical limitations. Atria Right atrium not well visualized secondary to technical limitations. The left atrial size is normal. Mitral Valve There is mild mitral annular calcification. There is no evidence of mitral valve prolapse. There is no vegetation seen on the mitral valve. There is no mitral valve stenosis. There is no mitral regurgitation noted. Aortic Valve There is no aortic valvular vegetation. There is aortic sclerosis without aortic stenosis. No aortic regurgitation is present. Tricuspid Valve There is no tricuspid stenosis. There is a trace amount of tricuspid regurgitation. Right ventricular systolic pressure is normal. RVSP is 22 to 27 mm of Hg , with RA mean of 5 to 10. Pulmonic Valve There is no pulmonic valvular stenosis. There is no pulmonic valvular regurgitation. Great Vessels The aortic root is normal size. The inferior vena cava appeared normal and decreased > 50% with respiration (RAP 5-10 mmHg). Effusions There is no pericardial effusion. : ERIN GALEAS > Katelyn Coronado
[2019-07-15] MEDS ORDERED: ATORVASTATIN CALCIUM 80 MG TABLET PO SCH (22:00)
[2019-07-16 05:11] LABS: HEMATOCRIT 39.3 % (36.0-47.0); HEMOGLOBIN 13.1 g/dL (12.0-15.5); MEAN CORPUSCULAR HEMOGLOBIN 26.9 pg (27.0-33.4); MEAN CORPUSCULAR HGB CONC 33.3 g/dL (32.0-36.0); MEAN CORPUSCULAR VOLUME 81 fl (80-97); PLATELET COUNT 262 10^3/uL (150-450); RED BLOOD COUNT 4.87 10^6/uL (3.72-5.28); RED CELL DISTRIBUTION WIDTH 15.2 % (11.5-14.0); WHITE BLOOD COUNT 9.8 10^3/uL (4.0-10.5)
[2019-07-16 08:06] VITALS: BP 99/41
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
[2019-07-16] MEDS ORDERED: HYDROMORPHONE HCL INJ/PF 2 MG/ML AMPULE IV ONE (09:30)
== END 2019-07-16 11:18 | disposition home or self-care (01) ==
LOC: ER 18:10 → INTOOBSV 07-15 00:37 → UNDOADMOB 07-15 00:37 → EH 07-15 00:37 → OBSVTOIN 07-15 00:37 → EH 07-15 01:04 → 3S 07-15 02:42
PROVIDERS: ADMIT Family Medicine; ATTEND Family Medicine
DX: H54.61 Unqualified visual loss, right eye, normal vision left eye (principal); H34.11 Central retinal artery occlusion, right eye; E66.01 Morbid (severe) obesity due to excess calories; G43.909 Migraine, unspecified, not intractable, without status migrainosus; M41.9 Scoliosis, unspecified; H53.142 Visual discomfort, left eye; M19.90 Unspecified osteoarthritis, unspecified site; F17.200 Nicotine dependence, unspecified, uncomplicated; Z82.49 Family history of ischemic heart disease and other diseases of the circulatory system; Z83.3 Family history of diabetes mellitus; Z90.49 Acquired absence of other specified parts of digestive tract; Z79.899 Other long term (current) drug therapy; Z82.3 Family history of stroke; Z87.828 Personal history of other (healed) physical injury and trauma; Z83.2 Family history of diseases of the blood and blood-forming organs and certain disorders involving the immune mechanism
CPT/HCPCS: 93005; 99285; 96361; 96374; 96375; 36415 ×3; 85025; 85027; 85610; 85730; 86038; 80053; 81241; 93306; 70553; 70547; 70544; 70450; 93010; G0378 ×3; J3490 ×4; J1200; J1885; J2765; J2270; J1170; J7030

== ENCOUNTER → 2019-08-20 | Outpatient (CLI) | payer MEDICAID | LOC: OD 13:26 | PROVIDERS: ATTEND Ophthalmology | DX: H34.11 Central retinal artery occlusion, right eye (principal); H47.10 Unspecified papilledema | CPT/HCPCS: 36415; 86592; 86701; 86777; 86778 ==